=== PATIENT | female | born 1995 | race African-American/Black ===

== ENCOUNTER 2018-02-19 00:23 | Emergency (ER) | payer OTHER ==
[2018-02-19] MEDS ORDERED: LORAZEPAM 1 MG TABLET PO ONE (00:43)
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
[2018-02-19 02:23] VITALS: BP 104/82
--- NOTE | 2018-02-19 10:30 | EKG REPORT ---
SEVERITY:- BORDERLINE ECG - SINUS RHYTHM PROBABLE LEFT ATRIAL ABNORMALITY BORDERLINE T ABNORMALITIES, ANTERIOR LEADS : Confirmed by: Erica Rodriguez 19-Feb-2018 10:30:08
== END 2018-02-19 02:23 | disposition home or self-care (01) ==
LOC: ER 00:23
DX: R55 Syncope and collapse (principal); F41.1 Generalized anxiety disorder
CPT/HCPCS: 93005; 93010; 99284